=== PATIENT | female | born 1930 | race Caucasian/White ===

== ENCOUNTER → 2016-07-15 | Outpatient (CLI) | payer MEDICARE, BC ==
[~2016-07-15] MED LIST: ACETAMINOPHEN500 M2 PO; ALLEGRA PO; ALLERGY RELIEF10 M1 PO; ALPRAZOLAM PO; ALPRAZOLAM0.25 MG PO; AMIODARONE HCL100 MG PO; AMIODARONE HCL200 MG PO; AMLODIPINE BESY10 MG PO; AMLODIPINE-OLM1 EAC1; ASPIR-TRIN325 MG PO; COREG3.125 MG PO; COUMADIN2.5 MG PO; HCTZ PO; HYDROCHLOROTHIA25 MG PO; KEFLEX PO; KLOR-CON SPRIN10 MEQ PO; LASIX20 MG PO; LEXAPRO PO; LEXAPRO20 MG PO; LO-DOSE ASPIRIN81 M1 PO; LORATADINE; LOTREL 10/20 MG1 CAP PO; METOPROLOL SUCC50 MG PO; METOPROLOL TAR25 MG PO; PEPCID PO; PRADAXA150 MG PO; PRINIVIL40 MG PO; SIMVASTATIN20 MG PO; ZOCOR PO; ZOCOR20 MG PO; [UNRECOGNIZED DRUG - REMARK]
[2016-07-15 12:53] LABS: HEMATOCRIT 33.8 % (35.0-45.0); HEMOGLOBIN 11.1 gm/dL (12.0-16.0); MEAN CELL VOLUME 83.2 FL (83-96); MEAN CORPUSCULAR HEMOGLOBIN 27.4 PG (28-34); MEAN CORPUSCULAR HGB CONC 32.9 g/dL (30-36); MEAN PLATELET VOLUME 10.3 FL (6.5-11.5); RED BLOOD COUNT 4.07 X10e (3.90-5.30); RED CELL DISTRIBUTION WIDTH 20.9 % (11.0-15.5); WHITE BLOOD COUNT 5.6 X10e3 (4.0-10.5)
[2016-07-15 13:27] LABS: BUN/CREATININE RATIO 13.75; CALCIUM SERUM 8.3 mg/dL (8.4-10.2); CREATININE SERUM 0.8 mg/dL (0.6-1.4); GLOM FILT RATE Estimated 67.3 mL/min (>60); POTASSIUM 3.5 mmol/L (3.5-5.1)
== END | disposition home or self-care (01) ==
LOC: CAMB 11:43
PROVIDERS: Urology
DX: Z01.812 Encounter for preprocedural laboratory examination (principal); N28.89 Other specified disorders of kidney and ureter
CPT/HCPCS: 36415; 80048; 85027; 86850; 86900; 86901

== ENCOUNTER 2016-07-24 06:26 | Inpatient (IN) | payer MEDICARE, BC ==
--- NOTE | ~2016-07-24 | EKG ---
PATIENT: PETER SALGADO UNIT #: [id number] Ventricular Rate: 40 BPM Atrial Rate: 40 BPM P-R Interval: 204 ms QRS Duration: 98 ms Q-T Interval: 692 ms QTC Calculation(Bezet): 563 ms P [place]: 45 degrees Calculated R [place]: 8 degrees Calculated T [place]: 26 degrees Diagnosis Line: Marked sinus bradycardia Diagnosis Line: Moderate voltage criteria for LVH, may be normal Diagnosis Line: variant Diagnosis Line: Nonspecific T wave abnormality Diagnosis Line: Prolonged QT Diagnosis Line: Abnormal ECG Diagnosis Line: When compared with ECG of 21-JAN-2016 13:08, Diagnosis Line: Nonspecific T wave abnormality, improved in Diagnosis Line: Inferior leads Diagnosis Line: Nonspecific T wave abnormality no longer evident Diagnosis Line: in Lateral leads Diagnosis Line: Confirmed by MARIA C BABB MD ([id number]) on 07/24/2016 Diagnosis Line: 6:10:35 PM INTERPRETING MD: SKINNY WINN
--- NOTE | ~2016-07-24 | CO ---
Unit #: [id number] #: [id number] Patient: PETER SALGADO [id number] [facility]. [place], [place] [address] [id number] I MR#: [id number] NAME: PETER SALGADO ROOM: 567 Age: 86 Sex: F Admission Date: 07/24/2016 : 1930 Attending Physician: Yao Schmidt M.D. Primary Care Physician: Kee Burch M.D. CONSULTATION REPORT HISTORY OF PRESENT ILLNESS Ms. Salgado is an 86-year-old white female, who underwent right nephrectomy for renal cell carcinoma. She has been maintained on oxygen postoperatively and when tried to get off oxygen, her saturations were low. We are asked to see. A chest x-ray has been done which shows new bibasilar infiltrates with some blunting of the costophrenic angles. Her I's and O's are positive by about 2.5 to 3 L. She has had some lower extremity edema. She denies any chest pain. She denies any resting short of breath. She denies any cough, purulent sputum, or hemoptysis. She does have a history of valvular heart disease with severe mitral regurgitation, left atrial enlargement, normal ejection fraction, and mild pulmonary hypertension with a right ventricular systolic pressure of 48, I believe. She is a lifelong nonsmoker. No history of intrinsic lung disease. PAST MEDICAL HISTORY 1. Paroxysmal atrial fibrillation, maintained on Coumadin. 2. 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 3. Right ventricular systolic pressure 48. 4. Left ventricular ejection fraction 55% to 60%. 5. History of negative stress test in 2010. 6. History of hypertension. 7. Hyperlipidemia. PAST SURGICAL HISTORY 1. Right nephrectomy. 2. Cataract extraction. 3. Tubal ligation. SOCIAL HISTORY Lifelong nonsmoker. No alcohol or illicit drugs. FAMILY HISTORY Positive for heart disease. ALLERGIES None known but says none to medicine but possibly bananas. CURRENT MEDICATIONS 1. Aspirin. 2. Hydralazine. 3. Pepcid. 4. Lipitor. Unit #: [id number] #: [id number] Patient: PETER SALGADO 5. Claritin. 6. Lasix. 7. Lisinopril. 8. Amiodarone. 9. Lovenox 40 mg daily. 10. Docusate. 11. Metoprolol. 12. Coumadin. 13. Morphine. 14. Hydrocodone/APAP. 15. She had been on Lexapro but that has been stopped. REVIEW OF SYSTEMS CONSTITUTIONAL: No fevers, chills. HEENT: No rhinorrhea, nasal congestion. PULMONARY: Short of breath. No cough. No purulent sputum. GASTROINTESTINAL: No nausea, vomiting. GENITOURINARY: Recent right nephrectomy for renal cell carcinoma. NEUROLOGIC: No unilateral weakness or numbness. SKIN: No rash. Remainder of 10-point system negative. PHYSICAL EXAMINATION GENERAL: White female in no distress. VITAL SIGNS: Blood pressure 175/56, pulse 60, respiratory rate 18, afebrile. HEENT: Normocephalic and atraumatic. Pupils equal, round, and reactive. Sclerae nonicteric. Nasal passages patent. Posterior pharynx clear. Mucous membranes moist. NECK: Supple. Trachea midline. No cervical or supraclavicular lymphadenopathy. CARDIAC: Regular rate and rhythm. A 2/6 systolic murmur right sternal border. LUNGS: Reveals crackles in the bases. ABDOMEN: Soft, nontender. Bowel sounds present. EXTREMITIES: Trace edema. SKIN: Warm and dry. PSYCHIATRIC: Affect calm. DIAGNOSTIC STUDIES LABORATORY: Sodium 122, it was 136 on admission. Potassium 3.1, chloride 87. PT/INR is 1.2. White blood cell count 9200, hematocrit 31.9, platelet count normal. IMAGING: Chest x-ray, personally reviewed, as noted. IMPRESSION 1. Acute hypoxemic respiratory failure. 2. Bilateral lower lobe infiltrates and likely effusions, most likely secondary to congestive heart failure, less likely pneumonia given lack of symptoms consistent with infection. 3. Valvular heart disease with severe mitral regurgitation. 4. Pulmonary hypertension, group two. 5. Postoperative right nephrectomy for renal cell carcinoma. 6. Paroxysmal atrial fibrillation on chronic Coumadin. 7. Hyponatremia. Unit #: [id number] #: [id number] Patient: PETER SALGADO RECOMMENDATIONS 1. Agree with diuresis and fluid restriction per renal service. 2. Will check BNP and procalcitonin. 3. I doubt pulmonary thromboembolic disease but would consider CT scan for evaluation if BNP is normal. 4. Will make further recommendations pending this. Dictated by... Dada Weaver/james TD: 07/29/2016 17:21 JOB #: [id number] CONSULTATION REPORT Page 1 of 1 X Brodie Crawley MD X CONSULTATION REPORT
--- NOTE | ~2016-07-24 | EKG ---
PATIENT: PETER SALGADO UNIT #: [id number] Ventricular Rate: 65 BPM Atrial Rate: 65 BPM P-R Interval: 162 ms QRS Duration: 94 ms Q-T Interval: 498 ms QTC Calculation(Bezet): 517 ms Calculated R [place]: 20 degrees Calculated T [place]: 124 degrees Diagnosis Line: Normal sinus rhythm Diagnosis Line: Lateral infarct , age undetermined Diagnosis Line: Prolonged QT Diagnosis Line: Abnormal ECG Diagnosis Line: When compared with ECG of 25-JUL-2016 05:46, Diagnosis Line: Vent. rate has increased BY 23 BPM Diagnosis Line: Lateral infarct is now Present Diagnosis Line: Confirmed by DELORES TILLMAN MD ([id number]) on Diagnosis Line: 07/30/2016 2:05:37 PM INTERPRETING MD: LAYNE WINN
--- NOTE | ~2016-07-24 | OR ---
Unit #: [id number] #: [id number] Patient: PETER SALGADO [id number] [place], [place] [address] [id number] O MR#: [id number] NAME: PETER SALGADO ROOM: Date of Procedure: 07/24/2016 Admission Date: 07/24/2016 Surgeon: Yao Schmidt M.D. : 1930 [employer] Parking Attendant(s): Sindy Marcus CFA Attending Physician: Yao Schmidt M.D. Referring Physician: Yao Schmidt M.D. Primary Care Physician: Kee Burch M.D. PROCEDURE OPERATIVE NOTE PREOPERATIVE DIAGNOSIS Right renal mass. POSTOPERATIVE DIAGNOSIS Right renal mass. PROCEDURE PERFORMED Right radical nephrectomy. ANESTHESIA General. INDICATIONS FOR PROCEDURE Ms. Salgado is a pleasant 86-year-old female who, on hematuria workup, as found to have a right renal mass. The risks, benefits, and alternatives including bleeding, infection, damage to adjacent structure is needed for further surgery. The possibility this was not a malignancy. Need for dialysis and other perioperative risks including PE, CVA, [place], and were discussed with the patient. Cardiac clearance was obtained. Full informed consent was obtained and she wished to proceed. DESCRIPTION OF PROCEDURE The patient was taken to the operating suite and appropriately identified. After the application of satisfactory general anesthetic, the patient was placed in the right flank position. All pressure points were padded with satisfaction of the surgical aspect and nursing teams. I made an incision off the tip of the 12th rib. Bovie electrocauterization was used to carry this through the fascial layers. The peritoneum was entered. A Buchwalter self-retaining retractor was placed. The kidney was mobilized completely. The ureter was identified and ligated between clips. I did also mobilize the adrenal gland. I divided the left adrenal vein between 2-0 Silk ties and divided this. The renal artery had multiple bifurcations. This was all managed with 0 Silk ties and 2-0 Silk suture ligatures. The renal vein was divided in a similar fashion. At this point the kidney and adrenal gland were passed off the table as a specimen. There was no bleeding. The bone was copiously irrigated. The fascia was closed in 2 L. The deep layer was closed with #1 Vicryl running suture. The superficial layer was closed with #1 Vicryl interrupted [id number] sutures and was again irrigated and the Dre tissue was closed with 3-0 Vicryl running stitch and the skin was closed with 4-0 Vicryl subcuticular stitch and Dermabond. The patient tolerated the procedure well without complications. Estimated blood loss was 100 mL. Unit #: [id number] #: [id number] Patient: PETER SALGADO Dictated by... Dada Medley/ashley TD: 07/24/2016 12:12 JOB #: [id number] PROCEDURE OPERATIVE NOTE Page 1 of 1 X Yao Schmidt MD X PROCEDURE OPERATIVE NOTE
--- NOTE | ~2016-07-24 | CO ---
Unit #: [id number] #: [id number] Patient: PETER SALGADO [id number] [facility]. [place], [place] [address] [id number] I MR#: [id number] NAME: PETER SALGADO ROOM: 567 Age: 86 Sex: F Admission Date: 07/24/2016 : 1930 Attending Physician: Yao Schmidt M.D. Primary Care Physician: Kee Burch M.D. Consultation Date: 07/29/2016 CONSULTATION REPORT REASON FOR CONSULT Hyponatremia. HISTORY OF PRESENT ILLNESS Ms. Salgado is a very pleasant 86-year-old female, who was brought in on the for a right radical nephrectomy for suspected renal cell cancer. Patient has actually come through this quite well and was anticipating discharge today when her sodium level dropped prompting our consultation. Review of the old records suggest that this has been an ongoing problem going all the way back to 2010. She does not have any documented COPD and has never smoked. She does have heart issues and cardiology has been seeing her for some bradycardia and she does have significant valvular heart disease. She is maintained on blood pressure medications and a daily Lasix. Patient reports urinating well with her catheter out. No hematuria. She has not been able to wean off of her oxygen and pulmonary has been asked to see. She denies any significant swelling problems at home. She has not had a bowel movement yet after her surgery. PAST MEDICAL HISTORY 1. Valvular heart disease with severe mitral regurgitation, severe tricuspid regurgitation, and pulmonary hypertension. 2. SVT. 3. Atrial fibrillation. 4. Hypertension. 5. Hyperlipidemia. 6. Nonsmoker. PAST SURGICAL HISTORY 1. Right nephrectomy. 2. Cataract surgery. 3. Tubal ligation. CURRENT MEDICATIONS 1. Baby aspirin daily. 2. Hydralazine 25 mg p.o. every eight hours. 3. Pepcid 20 mg IV daily. 4. Lexapro 20 mg daily was just discontinued. 5. Lipitor 10 mg at bedtime. 6. Claritin 10 mg daily. 7. Lasix 20 mg daily. 8. Lisinopril 40 mg at bedtime. 9. Amiodarone 100 mg daily. 10. Lovenox 40 mg subcutaneous daily. 11. Colace 100 mg twice a day. Unit #: [id number] #: [id number] Patient: PETER SALGADO 12. Metoprolol 25 mg twice a day. 13. Coumadin as directed and p.r.n. ALLERGIES She has no known drug allergies but bananas do cause an upset stomach. FAMILY HISTORY Negative for any kidney problems or dialysis. There is a family history of heart disease. SOCIAL HISTORY The patient is a lifelong nonsmoker. No alcohol or drug abuse. She has been exposed to secondhand smoke. REVIEW OF SYSTEMS A complete 12-point review of systems was completed with the above findings. In addition, patient overall feels well. She is eating a hearty breakfast with no nausea or vomiting. No headaches or dizziness. No nosebleed, sore throat, or earache. No chest pain or palpitations. No cough or hemoptysis. No shortness of breath at rest. No abdominal pain. No bright red blood per rectum or melena. No dysuria or hematuria. No rashes or itching. Surgical incision site is still sore. No night sweats or hot flashes. No intolerance to heat or cold. No bleeding issues. No recent major weight changes. Unless otherwise indicated, the review of systems was negative. PHYSICAL EXAMINATION VITAL SIGNS: Patient is afebrile. Pulse 60, respiratory rate 18, blood pressure 175/56 (lowest was 131/76). GENERAL: This is a pleasant 86-year-old female sitting up in a chair alert and in no acute distress. HEENT: Head is atraumatic, normocephalic. Eyes show pink conjunctivae with no scleral icterus. No nasal drainage or nosebleed. Oropharynx is moist without thrush. NECK: Shows no rigidity. HEART: Bradycardic but regular with murmur present. No gallop or rub appreciated. LUNGS: Do show some bibasilar rales, more so on the right than the left. No wheezing. Breathing is nonlabored. ABDOMEN: Soft, nontender. Bowel sounds are active. EXTREMITIES: No lower extremity clubbing or cyanosis. She has trace ankle edema bilaterally. SKIN: Dry with no rashes. MUSCULOSKELETAL: No joint effusions noted. NEUROLOGIC: Cranial nerves are grossly intact with no gross motor deficits. LYMPHATIC: There is no neck, cervical lymphadenopathy. PSYCHIATRIC: Mood and affect appear normal. DIAGNOSTIC STUDIES LABORATORY: Chemistry today showed a sodium of 122, potassium 3.1, BUN and creatinine were 13 and 0.9 respectively. INR 1.2. CBC noteworthy for hemoglobin postop of 10.5. Two days ago, her sodium level was 127 with a creatinine of 0.9. Magnesium was 2.1 at that time. Peak creatinine postop looks to be 1.3. TSH level on July 24 was slightly low at 0.18. It looks like sodium was low normal at admission at 136; however, if you look back to previous labs, sodium has traditionally run in the high 120 to low 130 range going back to 2010. Unit #: [id number] #: [id number] Patient: PETER SALGADO ASSESSMENT AND PLAN 1. Hyponatremia: This appears to be an acute on chronic issue. I certainly wonder if she does not have some underlying syndrome of inappropriate secretion of antidiuretic hormone although she has never smoked and does not have documented chronic obstructive pulmonary disease. This also could be related to volume issues with her diastolic congestive heart failure with valvular heart disease. Lexapro certainly can cause a syndrome of inappropriate secretion of antidiuretic hormone like picture and we will discontinue that. We will check an syndrome of inappropriate secretion of antidiuretic hormone workup. We will place her on a fluid restriction and will give her some extra Lasix today. If sodium level does trend up over the next day or so, she can be discharged with outpatient followup. 2. Hypokalemia: This is being replaced IV and we will recheck a potassium level post replacement. 3. Congestive heart failure which is diastolic in nature with significant valvular heart disease. We will dose extra Lasix today and put her on a fluid restriction. 4. Chronic kidney disease, likely stage 1 versus 2. Patient had a loss of renal mass with her nephrectomy and seems to be doing quite well from a function standpoint postoperative. 5. History of pulmonary hypertension. 6. History of atrial fibrillation, now in sinus being followed by cardiology. 7. Hypertension: Medications have been titrated. We will give extra Lasix today. I would like to thank Dr. Schmidt for this consult and the opportunity to participate in evaluation and care of Ms. Salgado. Dictated by... Amador Lerma Jr., M.D. RENAN/james TD: 07/29/2016 12:26 JOB #: [id number] CONSULTATION REPORT Page 1 of 1 X Amador Lerma MD CONSULTATION REPORT
--- NOTE | ~2016-07-24 | EKG ---
PATIENT: PETER SALGADO UNIT #: [id number] Ventricular Rate: 42 BPM Atrial Rate: 42 BPM P-R Interval: 130 ms QRS Duration: 80 ms Q-T Interval: 624 ms QTC Calculation(Bezet): 521 ms P [place]: 44 degrees Calculated R [place]: 33 degrees Calculated T [place]: 45 degrees Diagnosis Line: Marked sinus bradycardia Diagnosis Line: Prolonged QT Diagnosis Line: Abnormal ECG Diagnosis Line: When compared with ECG of 24-JUL-2016 12:34, Diagnosis Line: No significant change was found Diagnosis Line: Confirmed by NATE LOMBARDO MD ([id number]) on Diagnosis Line: 07/29/2016 5:12:43 PM INTERPRETING MD: JAY
--- NOTE | ~2016-07-24 | DS ---
Unit #: [id number] #: [id number] Patient: PETER SALGADO [id number] [facility]. [place], [place] [address] [id number] I MR#: [id number] NAME: PETER SALGADO ROOM: 567 Age: 86 Sex: F Admission Date: 07/24/2016 : 1930 Discharge Date: 07/29/2016 Attending Physician: Yao Schmidt M.D. Referring Physician: Yao Schmidt M.D. Primary Care Physician: Kee Burch M.D. DISCHARGE SUMMARY ADMITTING DIAGNOSIS Right renal mass. DISCHARGE DIAGNOSIS Right renal mass, status post right radical nephrectomy. ADMITTING INFORMATION The patient is a pleasant 86-year-old female with a right renal mass. Cardiac clearance was obtained. The risks, benefits and alternatives of right radical nephrectomy were discussed with the patient. Informed consent was obtained and they wished to proceed. HOSPITAL COURSE The patient was admitted and she underwent the above procedure without complication. She did have bradycardia with a heart rate in the 30s. She was followed by cardiology. She had negative troponins. She was placed on a director of cardiac cath lab. Her amiodarone was decreased, as was her metoprolol. Her hemoglobin was stable. She was resumed on her Coumadin 2.5 mg daily on 07/27/2016. She has been advanced to a regular diet today. Assuming that she tolerates this I anticipate discharge tomorrow. She has been evaluated by physical therapy and occupational therapy services and she is able to ambulate with a walker. She will need physical therapy and occupational therapy as an outpatient. DISCHARGE MEDICATIONS 1. Metoprolol 25 mg b.i.d. 2. Coumadin 2.5 mg daily. 3. Xanax 0.25 mg b.i.d. p.r.n. anxiety. 4. Hydralazine 25 mg p.o. b.i.d. 5. Colace 100 mg p.o. b.i.d. 6. Amiodarone 100 mg daily. 7. Lasix 20 mg daily. 8. Claritin 10 mg daily. 9. Lipitor 10 mg daily. 10. Malcolm 5/325 mg 1-2 p.o. q.6 h. p.r.n. pain. 11. Aspirin 81 mg daily. FOLLOWUP 1. She will follow up with me in two weeks. 2. She should follow up with her apple packing header in two weeks. 3. She should have an INR checked with her primary care physician in two weeks as well. Unit #: [id number] #: [id number] Patient: PETER SALGADO Dictated by... Yao Schmidt M.D. MDP/gz TD: 07/28/2016 06:50 JOB #: [id number] DISCHARGE SUMMARY Page 1 of 1 X Yao Schmidt MD X DISCHARGE SUMMARY
--- NOTE | ~2016-07-24 | DS ---
Unit #: [id number] #: [id number] Patient: PTEER SALGADO [id number] [facility]. [place], [place] [address] [id number] MR#: [id number] NAME: PETER SALGADO ROOM: 567 Age: 86 Sex: F Admission Date: 07/24/2016 : 1930 Discharge Date: 08/01/2016 Attending Physician: Yao Schmidt M.D. Referring Physician: Yao Schmidt M.D. Primary Care Physician: Kee Burch M.D. DISCHARGE SUMMARY ADDENDUM ADMITTING DIAGNOSES Right renal mass. DISCHARGE DIAGNOSES Right renal cell carcinoma, status post right radical nephrectomy. ADDENDUM The patient developed hypokalemia and hyponatremia which was managed by diuresis. She also had some hypoxia which was followed by cardiology and pulmonary. She was felt to be in congestive heart failure. She was diuresed appropriately over the next couple of days. On the day of discharge her sodium is 131, potassium 4.0. Her hemoglobin this morning was 8.8, which was down from 10.5 on 05/29/2016. I rechecked it 8 hours later and it was 10.6, so I suspect that this was a lab error. Her INR today is 1.5. DISCHARGE MEDICATIONS This list of discharge medications supersedes any previous list. These are her discharge medications 1. Amiodarone 100 mg p.o. daily. 2. Coumadin 2.5 mg daily. 3. Lexapro 20 mg daily. 4. Loratadine 10 mg daily. 5. Metoprolol 25 mg p.o. b.i.d. 6. Lasix 20 mg p.o. b.i.d. 7. Zocor 20 mg p.o. daily. 8. Hydralazine 50 mg p.o. q.8 h. Hold for systolic blood pressure less than 120. 9. Lisinopril 40 mg daily. 10. Pepcid 10 mg p.o. daily. 11. Aspirin 81 mg daily. 12. [place] 5/325 mg 1-2 p.o. q.6 h. p.r.n. moderate to severe pain. 13. Augmentin 500/125 mg p.o. daily times 5 days. 14. Potassium chloride 20 mEq p.o. b.i.d. 15. She is to have oxygen to keep her saturations greater than 90%. FOLLOWUP She should follow up with me in approximately 10 days. Unit #: [id number] #: [id number] Patient: PETER SALGADO Dictated by... Yao Schmidt M.D. MDP/gz TD: 08/01/2016 12:25 JOB #: [id number] DISCHARGE SUMMARY Page 1 of 1 X Yao Schmidt MD X DISCHARGE SUMMARY
--- NOTE | ~2016-07-24 | CR63 ---
[facility] A Service of [facility] RADIOLOGY TEXT RESULTS PATIENT: PETER SALGADO LOCATION: [facility] [id number] : [birth year] UNIT #: [id number] AGE: [address]: Yao Schmidt MD SEX: F ORDER DR: [id number] [facility] [address] [facility]. [place], [place] [address] [id number] I MR#: [id number] Acc #: [id number] NAME: PETER SALGADO : 1930 SEX: F STUDY DATE/TIME: 07/30/2016 7:38 UNIT: [facility] ROOM: [facility] STUDY DESCRIPTION: CR Chest 2 View Attending Physician: Yao Schmidt M.D. Referring Physician: Yao Schmidt M.D. Ordering Physician: Brodie Crawley M.D. Primary Care Physician: Kee Burch M.D. MEDICAL IMAGING REPORT This report is preliminary unless electronic signature is present EXAM PA and lateral chest. INDICATION Shortness of breath since July 24. COMPARISON Comparison with yesterday. FINDINGS Improved appearance of the chest with decreased bibasilar infiltrates. Heart size stable. Degenerative change of thoracic spine. IMPRESSION Improved bibasilar infiltrates. Dictated by... Rodney Echavarria M.D. THIS IS AN ELECTRONICALLY VERIFIED REPORT Rodney Echavarria M.D. at 07/31/2016 7:14 AM HARMEET/sanjay TD: 07/30/2016 15:05 JOB #: [id number] MEDICAL IMAGING REPORT Page 1 of 1 COPY
--- NOTE | ~2016-07-24 | CO ---
Unit #: [id number] #: [id number] Patient: PETER SALGADO [id number] [facility]. [place], [place] [address] [id number] I MR#: [id number] NAME: PETER SALGADO ROOM: 567 Age: 86 Sex: F Admission Date: 07/24/2016 : 1930 Attending Physician: Yao Schmidt M.D. Primary Care Physician: Kee Burch M.D. CONSULTATION REPORT REASON FOR CONSULTATION Bradycardia. HISTORY OF PRESENT ILLNESS This is an 86-year-old white female who is known to Dr. Avelar, who has a history of paroxysmal atrial fibrillation and she has undergone a direct current cardioversion in the past. She has been on anticoagulation with Coumadin. The patient is admitted, status post right radical nephrectomy for right renal mass. In recovery phase, the patient's heart rate was as low as 42 beats per minute. Blood pressure is currently stable. The patient is drowsy, but does not complain of chest pain, nausea, diaphoresis or palpitations. She reports slight shortness of breath. Electrocardiogram shows no high-grade AV blocks. There was T-wave inversion in the septal leads. QTc prolonged at 563 milliseconds. She was given Levaquin preoperatively. PAST MEDICAL HISTORY 1. 2D echocardiogram on 12/25/2015 shows an ejection fraction equal to 55% to 60%. Left atrium [id number] dilated. Mild aortic regurgitation, severe mitral regurgitation, and severe tricuspid regurgitation. Mild pulmonic valve regurgitation. Right ventricular systolic pressure 48 mmHg. 2. Stress test in 2010 shows no ischemia. 3. Paroxysmal supraventricular tachycardia. 4. Paroxysmal atrial fibrillation, status post direct current cardioversion, on Coumadin. 5. Hypertension. 6. Hyperlipidemia. 7. Nonsmoker. PAST SURGICAL HISTORY 1. Right nephrectomy. 2. Cataract extraction. 3. Tubal ligation. SOCIAL HISTORY The patient is a nonsmoker with no history of illicit drug or alcohol use. FAMILY HISTORY Positive for heart disease with brother with coronary artery bypass graft. Daughter had angioplasty. ALLERGIES Unit #: [id number] #: [id number] Patient: PETER SALGADO No known drug allergies, but has allergies to bananas. HOME MEDICATIONS Lexapro 20 mg daily, simvastatin 20 mg nightly, Xanax 0.25 mg b.i.d. p.r.n., metoprolol succinate 50 mg b.i.d., potassium chloride 10 mEq b.i.d., aspirin 81 mg daily, Pepcid 10 mg daily, loratadine 10 mg daily, amiodarone 200 mg daily, Coumadin 2.5 mg daily, furosemide 20 mg, and Prinivil 40 mg daily. REVIEW OF SYSTEMS Unable to adequately obtain because the patient is drowsy from anesthesia. Please see details in the HPI. PHYSICAL EXAMINATION VITAL SIGNS: Blood pressure 170/82, heart rate 42. GENERAL: This is a thin 86-year-old elderly white female who is in no acute respiratory distress. NEUROLOGIC: She is awake, alert, and oriented, but drowsy. NECK: Trachea is midline. No thyromegaly or lymphadenopathy. No jugular venous distention. HEART: S1 and S2 with no S3 or S4 with grade 3/6 systolic murmur heard at the right sternal border. ABDOMEN: Soft with bowel sounds are present. EXTREMITIES: Trace leg edema. SKIN: Pale and dry. DIAGNOSTIC STUDIES LABORATORY RESULTS: Glucose 100, BUN 5, creatinine 0.8. Sodium 136, potassium 3.5. White count 7.8, hemoglobin 10.6, hematocrit 32.0, and platelet count is 112. IMAGING STUDIES: Cardiovascular studies, electrocardiogram; sinus bradycardia, rate of 40 beats per minute. There is T-wave inversion in V1 through V4. QTc prolonged at 563 milliseconds. IMPRESSION 1. Right renal mass, status post right radical nephrectomy. 2. Asymptomatic sinus bradycardia with questionable sick sinus syndrome. 3. Prolonged QTc. 4. History of paroxysmal atrial fibrillation, in normal sinus rhythm. 5. Hypertension. 6. Hyperlipidemia. 7. Valvular heart disease with severe mitral regurgitation and severe tricuspid regurgitation. 8. Preserved left ventricular systolic function with ejection fraction of 55% to 60%. 9. Pulmonary hypertension. PLAN 1. Cardiology was consulted for bradycardia. The patient has asymptomatic bradycardia. Blood pressure is currently stable. There are no high-grade AV blocks. QTc is prolonged. We will discontinue beta-vidal and decrease the dose of amiodarone. 2. The patient is to receive Levaquin. We will ask Dr. Schmidt if Levaquin can be changed to prevent arrhythmias with combine use of Levaquin and amiodarone. 3. Continue YVONNE inhibitor and calcium channel vidal for blood pressure control. We will add p.r.n. hydralazine if needed. Unit #: [id number] #: [id number] Patient: PETER SALGADO 4. TSH will be checked. 5. Further recommendations to follow. Thank you for allowing us to assist in this patient's care. Dictated by... Tomas Donaldson A.P.R.N. for Dada Beltran/jose TD: 07/25/2016 05:28 JOB #: [id number] CONSULTATION REPORT Page 1 of 1 X Tomas Donaldson APRN X CONSULTATION REPORT
--- NOTE | ~2016-07-24 | CR63 ---
[facility] A Service of [facility] RADIOLOGY TEXT RESULTS PATIENT: PETER SALGADO LOCATION: [facility] 567-01 : [birth year] UNIT #: [id number] AGE: [address]: Yao Schmidt MD SEX: F ORDER DR: [id number] [facility] [address] [facility]. [place], [place] [address] [id number] I MR#: [id number] Acc #: [id number] NAME: PETER SALGADO : 1930 SEX: F STUDY DATE/TIME: 07/29/2016 UNIT: [facility] ROOM: [facility] STUDY DESCRIPTION: CR Chest 2 View Attending Physician: Yao Schmidt M.D. Referring Physician: Yao Schmidt M.D. Ordering Physician: Constantine Vidales M.D. Primary Care Physician: Kee Burch M.D. MEDICAL IMAGING REPORT This report is preliminary unless electronic signature is present EXAM Chest 2 views 07/29/2016 09:01 hours CLINICAL HISTORY 86-year-old woman with shortness of air and rapid heartbeat for 1 day. COMPARISON: 01/16/1960. FINDINGS Upright PA and lateral views of the chest demonstrate moderate cardiomegaly and tortuous aorta similar to 01/16/2016. There is pulmonary venous distension with patchy airspace density in the left mid lung and both lung bases. Lateral views suggest small bilateral pleural effusions. Findings could represent asymmetric edema or multifocal pneumonia. IMPRESSION Stable cardiomegaly with new patchy density left perihilar region, left greater than right lung base with lateral view suggesting small bilateral pleural effusions. Findings could represent multifocal pneumonia or asymmetric edema. Dictated by... Bonnie Gayle M.D. THIS IS AN ELECTRONICALLY VERIFIED REPORT Bonnie Gayle M.D. at 07/29/2016 2:30 PM SMM/jass TD: 07/29/2016 11:03 JOB #: [id number] MEDICAL IMAGING REPORT Page 1 of 1 COPY
--- NOTE | ~2016-07-24 | DS ---
Unit #: [id number] #: [id number] Patient: PETER SALGADO [id number] [address] [id number] I MR#: [id number] NAME: PETER SALGADO ROOM: [facility] Age: 86 Sex: F Admission Date: 07/24/2016 : 1930 Discharge Date: Attending Physician: Yao Schmidt M.D. Referring Physician: Yao Schmidt M.D. Primary Care Physician: Kee Burch M.D. DISCHARGE SUMMARY ADDENDUM ADDITIONAL DISCHARGE MEDICATIONS 1. Pepcid 10 mg p.o. daily. 2. Potassium chloride 10 mEq p.o. b.i.d. Dictated by... Yao Schmidt M.D. MDP/gz TD: 07/28/2016 07:04 JOB #: [id number] DISCHARGE SUMMARY Page 1 of 1 X Yao Schmidt MD X DISCHARGE SUMMARY
--- NOTE | ~2016-07-24 | CR72 ---
[facility] A Service of [facility] RADIOLOGY TEXT RESULTS PATIENT: PETER SALGADO LOCATION: [facility] : 31 UNIT #: [id number] AGE: [address]: Yao Schmidt MD SEX: F ORDER DR: [id number] [facility]. [place], [place] [address] [id number] I MR#: [id number] Acc #: [id number] NAME: PETER SALGADO : 1930 SEX: F STUDY DATE/TIME: 08/01/2016 5:32 UNIT: [facility] ROOM: [facility] STUDY DESCRIPTION: CR Chest Single View Portable Attending Physician: Yao Schmidt M.D. Referring Physician: Yao Schmidt M.D. Ordering Physician: Brodie Crawley M.D. Primary Care Physician: Kee Burch M.D. MEDICAL IMAGING REPORT This report is preliminary unless electronic signature is present EXAM Portable chest. INDICATION CHF. PROCEDURE Frontal view chest. COMPARISON 07/30/2016 FINDINGS Cardiomegaly is stable. Central pulmonary vascular congestion is increased and there is increasing patchy alveolar opacity in both lungs. Probable small bilateral effusions. No visible pneumothorax. IMPRESSION Worsening CHF. Increased vascular congestion and patchy alveolar opacity in both lungs. Dictated by... Abdifatah Hughes M.D. THIS IS AN ELECTRONICALLY VERIFIED REPORT Abdifatah Hughes M.D. at 08/04/2016 7:21 AM EED/tmw TD: 08/01/2016 10:12 JOB #: [id number] [facility] A Service of [facility] RADIOLOGY TEXT RESULTS PATIENT: PETER SALGADO LOCATION: [facility] : 31 UNIT #: [id number] AGE: [address]: Yao Schmidt MD SEX: F ORDER DR: MEDICAL IMAGING REPORT Page 1 of 1 COPY
[2016-07-24 07:41] LABS: INR 1.1; PROTHROMBIN TIME (PATIENT) 11.9 SECONDS (9.6-11.5)
[2016-07-24 08:05] LABS: BUN/CREATININE RATIO 6.25; CALCIUM SERUM 8.9 mg/dL (8.4-10.2); CREATININE SERUM 0.8 mg/dL (0.6-1.4); GLOM FILT RATE Estimated 67.3 mL/min (>60); POTASSIUM 3.5 mmol/L (3.5-5.1)
[2016-07-24 11:58] LABS: BASOPHIL% 0.5 % (0-2.5); EOSINOPHIL# 0.2 X10e3 (0-0.7); EOSINOPHIL% 2.1 % (0.0-7.0); HEMOGLOBIN 10.6 gm/dL (12.0-16.0); LYMPHOCYTE# 0.5 X10e3 (1.0-3.5); LYMPHOCYTE% 5.8 % (17.0-45.0); MEAN CELL VOLUME 85.9 FL (83-96); MEAN CORPUSCULAR HEMOGLOBIN 28.4 PG (28-34); MEAN CORPUSCULAR HGB CONC 33.1 g/dL (30-36); MEAN PLATELET VOLUME 10.2 FL (6.5-11.5); MONOCYTE# 0.5 X10e3 (0-1.0); MONOCYTE% 6.9 % (3.0-12.0); NEUTROPHIL# 6.6 X10e3 (1.5-7.1); NEUTROPHIL% 84.7 % (40-75); PLATELET COUNT 112 X10e3 (140-420); RED BLOOD COUNT 3.72 X10e (3.90-5.30); RED CELL DISTRIBUTION WIDTH 21.5 % (11.0-15.5); WHITE BLOOD COUNT 7.8 X10e3 (4.0-10.5)
[2016-07-24 12:02] LABS: DIFF IND NO
[2016-07-24 12:42] LABS: BUN/CREATININE RATIO 8.33; CREATININE SERUM 0.6 mg/dL (0.6-1.4); GLOM FILT RATE Estimated 83.1 mL/min (>60); MAGNESIUM 1.4 mg/dL (1.6-3.0)
[2016-07-24 12:57] LABS: POTASSIUM 2.7 mmol/L (3.5-5.1)
[2016-07-25 06:32] LABS: BASOPHIL% 0.2 % (0-2.5); EOSINOPHIL% 0.1 % (0.0-7.0); HEMATOCRIT 32.9 % (35.0-45.0); HEMOGLOBIN 10.7 gm/dL (12.0-16.0); LYMPHOCYTE# 0.5 X10e3 (1.0-3.5); LYMPHOCYTE% 5.9 % (17.0-45.0); MEAN CORPUSCULAR HEMOGLOBIN 28.2 PG (28-34); MEAN CORPUSCULAR HGB CONC 32.5 g/dL (30-36); MEAN PLATELET VOLUME 11.4 FL (6.5-11.5); MONOCYTE% 12.5 % (3.0-12.0); NEUTROPHIL# 6.6 X10e3 (1.5-7.1); NEUTROPHIL% 81.3 % (40-75); PLATELET COUNT 115 X10e3 (140-420); RED BLOOD COUNT 3.78 X10e (3.90-5.30); RED CELL DISTRIBUTION WIDTH 21.4 % (11.0-15.5); WHITE BLOOD COUNT 8.1 X10e3 (4.0-10.5)
[2016-07-25 06:37] LABS: DIFF IND NO
[2016-07-25 07:01] LABS: CALCIUM SERUM 8.4 mg/dL (8.4-10.2); GLOM FILT RATE Estimated 51.4 mL/min (>60); MAGNESIUM 1.7 mg/dL (1.6-3.0)
[2016-07-25 12:41] LABS: FREE THYROXIN (T4) 1.98 ng/dL (0.58-1.64)
[2016-07-26 04:00] LABS: HEMATOCRIT 32.4 % (35.0-45.0); HEMOGLOBIN 10.6 gm/dL (12.0-16.0); MEAN CELL VOLUME 86.5 FL (83-96); MEAN CORPUSCULAR HEMOGLOBIN 28.3 PG (28-34); MEAN CORPUSCULAR HGB CONC 32.8 g/dL (30-36); MEAN PLATELET VOLUME 10.4 FL (6.5-11.5); RED BLOOD COUNT 3.74 X10e (3.90-5.30); RED CELL DISTRIBUTION WIDTH 21.9 % (11.0-15.5); WHITE BLOOD COUNT 9.6 X10e3 (4.0-10.5)
[2016-07-26 04:28] LABS: BUN/CREATININE RATIO 6.92; CALCIUM SERUM 8.5 mg/dL (8.4-10.2); CREATININE SERUM 1.3 mg/dL (0.6-1.4); GLOM FILT RATE Estimated 37.4 mL/min (>60); MAGNESIUM 1.7 mg/dL (1.6-3.0)
[2016-07-27 02:49] LABS: HEMATOCRIT 30.9 % (35.0-45.0); HEMOGLOBIN 10.1 gm/dL (12.0-16.0); MEAN CELL VOLUME 87.2 FL (83-96); MEAN CORPUSCULAR HEMOGLOBIN 28.6 PG (28-34); MEAN CORPUSCULAR HGB CONC 32.7 g/dL (30-36); MEAN PLATELET VOLUME 10.7 FL (6.5-11.5); RED BLOOD COUNT 3.54 X10e (3.90-5.30); RED CELL DISTRIBUTION WIDTH 21.9 % (11.0-15.5); WHITE BLOOD COUNT 10.4 X10e3 (4.0-10.5)
[2016-07-27 03:24] LABS: BUN/CREATININE RATIO 11.11; CALCIUM SERUM 8.6 mg/dL (8.4-10.2); CREATININE SERUM 0.9 mg/dL (0.6-1.4); GLOM FILT RATE Estimated 58.3 mL/min (>60); MAGNESIUM 2.1 mg/dL (1.6-3.0); POTASSIUM 4.2 mmol/L (3.5-5.1)
[2016-07-28 07:05] LABS: INR 1.1
[2016-07-29 02:22] LABS: HEMATOCRIT 31.9 % (35.0-45.0); HEMOGLOBIN 10.5 gm/dL (12.0-16.0); MEAN CORPUSCULAR HEMOGLOBIN 28.4 PG (28-34); MEAN CORPUSCULAR HGB CONC 33.1 g/dL (30-36); MEAN PLATELET VOLUME 9.8 FL (6.5-11.5); RED BLOOD COUNT 3.71 X10e (3.90-5.30); RED CELL DISTRIBUTION WIDTH 20.4 % (11.0-15.5); WHITE BLOOD COUNT 9.2 X10e3 (4.0-10.5)
[2016-07-29 02:34] LABS: INR 1.2; PROTHROMBIN TIME (PATIENT) 12.9 SECONDS (9.6-11.5)
[2016-07-29 02:44] LABS: BUN/CREATININE RATIO 14.44; CALCIUM SERUM 8.4 mg/dL (8.4-10.2); CREATININE SERUM 0.9 mg/dL (0.6-1.4); GLOM FILT RATE Estimated 58.3 mL/min (>60); POTASSIUM 3.1 mmol/L (3.5-5.1)
[2016-07-29 12:01] LABS: URIC ACID 1.6 mg/dL (2.6-7.2)
[2016-07-29 13:11] LABS: URINE APPEARANCE CLEAR; URINE BILIRUBIN NEG (NEG); URINE BLOOD NEG (NEG); URINE COLOR DK YELLOW; URINE GLUCOSE 500 MG/DL (NEG); URINE KETONE NEG (NEG); URINE LEUKOCYTE ESTERASE TRACE (NEG); URINE NITRATE NEG (NEG); URINE PROTEIN 1+ (NEG); URINE SPECIFIC GRAVITY 1.021 (1.003-1.035); URINE UROBILINOGEN 0.2 MG/DL (NEG)
[2016-07-29 13:13] LABS: URBCS1 AUWI 0-2 /[HPF] (0-2); URINE BACTERIA AUWI NEG (NEGATIVE); URINE SQUAMOUS EPITHELIAL CELL OCC /[HPF]
[2016-07-29 13:19] LABS: SODIUM URINE RANDOM <10 mmol/L
[2016-07-29 13:23] LABS: URINE YEAST PRESENT
[2016-07-29 13:41] LABS: OSMOLALITY,URINE 502 mOsmo/kg (250-900)
[2016-07-30 05:48] LABS: INR 1.3
[2016-07-30 06:14] LABS: CALCIUM SERUM 8.3 mg/dL (8.4-10.2); GLOM FILT RATE Estimated 51.4 mL/min (>60); MAGNESIUM 1.8 mg/dL (1.6-3.0)
[2016-07-30 06:18] LABS: POTASSIUM 2.8 mmol/L (3.5-5.1)
[2016-07-31 07:36] LABS: CALCIUM SERUM 8.1 mg/dL (8.4-10.2); GLOM FILT RATE Estimated 51.4 mL/min (>60); MAGNESIUM 1.8 mg/dL (1.6-3.0)
[2016-07-31 07:41] LABS: POTASSIUM 2.9 mmol/L (3.5-5.1)
[2016-07-31 16:25] LABS: INR 1.4; PROTHROMBIN TIME (PATIENT) 15.4 SECONDS (9.6-11.5)
[2016-08-01 02:47] LABS: HEMATOCRIT 26.3 % (35.0-45.0); HEMOGLOBIN 8.8 gm/dL (12.0-16.0); MEAN CELL VOLUME 84.3 FL (83-96); MEAN CORPUSCULAR HEMOGLOBIN 28.4 PG (28-34); MEAN CORPUSCULAR HGB CONC 33.7 g/dL (30-36); MEAN PLATELET VOLUME 8.4 FL (6.5-11.5); RED BLOOD COUNT 3.12 X10e (3.90-5.30); RED CELL DISTRIBUTION WIDTH 20.4 % (11.0-15.5); WHITE BLOOD COUNT 6.7 X10e3 (4.0-10.5)
[2016-08-01 03:02] LABS: INR 1.5
[2016-08-01 03:08] LABS: BUN/CREATININE RATIO 15.45; CALCIUM SERUM 8.3 mg/dL (8.4-10.2); CREATININE SERUM 1.1 mg/dL (0.6-1.4); GLOM FILT RATE Estimated 45.8 mL/min (>60)
[2016-08-01 10:53] LABS: HEMATOCRIT 31.5 % (35.0-45.0); HEMOGLOBIN 10.6 gm/dL (12.0-16.0); MEAN CELL VOLUME 85.2 FL (83-96); MEAN CORPUSCULAR HEMOGLOBIN 28.7 PG (28-34); MEAN CORPUSCULAR HGB CONC 33.7 g/dL (30-36); MEAN PLATELET VOLUME 8.5 FL (6.5-11.5); RED BLOOD COUNT 3.7 X10e (3.90-5.30); RED CELL DISTRIBUTION WIDTH 20.7 % (11.0-15.5); WHITE BLOOD COUNT 9.6 X10e3 (4.0-10.5)
== END 2016-08-01 15:37 | DRG 656 ==
LOC: CSUR 06:26 → CPACUOF 10:50 → C5C 10:50 → CPACUOF 13:03 → CSUR 13:03 → CPACUOF 13:58 → C4B 13:58 → C5C 17:27 → C4B 17:27 → C5C 08-01 15:37
PROVIDERS: Internal Medicine Nephrology; Nurse Practitioner; Urology
PROC: 0TT00ZZ Resection of Right Kidney, Open Approach (ICD-10-PCS; principal; 2016-07-24 08:30)
DX: C64.1 Malignant neoplasm of right kidney, except renal pelvis (principal); J96.01 Acute respiratory failure with hypoxia; J90 Pleural effusion, not elsewhere classified; I50.33 Acute on chronic diastolic (congestive) heart failure; E22.2 Syndrome of inappropriate secretion of antidiuretic hormone; I48.0 Paroxysmal atrial fibrillation; R00.1 Bradycardia, unspecified; I13.0 Hypertensive heart and chronic kidney disease with heart failure and stage 1 through stage 4 chronic kidney disease, or unspecified chronic kidney disease; Z79.01 Long term (current) use of anticoagulants; Z98.49 Cataract extraction status, unspecified eye; Z79.82 Long term (current) use of aspirin; E78.5 Hyperlipidemia, unspecified; I08.1 Rheumatic disorders of both mitral and tricuspid valves; I27.2 Other secondary pulmonary hypertension; N18.1 Chronic kidney disease, stage 1; E87.6 Hypokalemia; D64.9 Anemia, unspecified; I45.81 Long QT syndrome
CPT/HCPCS: 71010; 71020; 80048; 81003; 82308; 83735; 83880; 83930; 83935; 84132; 84295; 84300; 84439; 84443; 84481; 84484; 84550; 85025; 85027; 85610; 88307; 93005; 94760; 94761; 94762; 97110; 97116; 97163; 97166; 97530; 97535; G8978-GP; G8979-GP; G8987-GO; G8988-GO; J0131; J0171; J0330; J0360; J0461; J0690; J0696; J1650; J1940; J1956; J2250; J2270; J2405; J2710; J3010; J3475